=== PATIENT | female | born 1940 | race Caucasian/White ===

== ENCOUNTER 2021-02-14 12:05 | Emergency (ER) | payer MEDICARE ==
[~2021-02-14] VITALS: Ht 160 cm; Wt 56.8 kg
[2021-02-14 12:06] VITALS: TEMP 8.6
[2021-02-14 17:47] VITALS: BP 145/61; PULSE 80
== END 2021-02-14 17:50 | disposition home or self-care (01) ==
LOC: COL.ER 12:05
DX: S22.069A Unspecified fracture of T7-T8 vertebra, initial encounter for closed fracture (principal); I10 Essential (primary) hypertension; X58.XXXA Exposure to other specified factors, initial encounter
CPT/HCPCS: J2270; J2405

== ENCOUNTER 2021-02-17 16:38 | Emergency (ER) | payer MEDICARE ==
[~2021-02-17] VITALS: Ht 160 cm; Wt 54.5 kg
[2021-02-17 16:39] VITALS: TEMP 97.2
[2021-02-17 17:07] LABS: BASO % 0.5 % (0.0-2.0); EOS # 0.1 K/mm3 (0.0-0.7); EOS % 1.6 % (0-4.0); GRAN # 5.1 K/mm3 (1.4-6.5); GRAN % 67.1 % (42.2-75.2); HEMATOCRIT 41.4 % (37.0-47.0); HEMOGLOBIN 14.3 g/dl (12.5-16.0); LYMPH # 1.3 K/mm3 (1.2-3.4); LYMPH % 17.3 % (20.0-51.0); MEAN CELL VOLUME 92 fl (80.0-100.0); MEAN CORPUSCULAR HEMOGLOBIN 32 pg (27.0-31.0); MEAN CORPUSCULAR HGB CONC 35 g/dl (33.0-37.0); MEAN PLATELET VOLUME 9.9 fl (7.4-10.4); MONO % 13.4 % (1.7-9.3); PLATELET COUNT 249 K/mm3 (130-400); RED BLOOD COUNT 4.52 M/mm3 (4.10-5.30); REDCELL DISTRIBUTION WIDTH-CV 12.3 % (11.5-14.5)
[2021-02-17 17:26] LABS: ALBUMIN 3.4 gm/dL (3.4-4.8); BILIRUBIN,TOTAL 0.6 mg/dL (0.2-1.2); C-REACTIVE PROTEIN 6.13 mg/dL (0.00-0.50); CALCIUM 9.1 mg/dL (8.4-10.2); CREATININE, serum 0.79 mg/dL (0.57-1.11); POTASSIUM 3.7 mmol/L (3.5-4.5); TOTAL PROTEIN 6.7 gm/dL (6.2-8.1)
[2021-02-17] MEDS ORDERED: DULCOLAX STOOL100 MG PO (19:00)
[2021-02-17 19:13] VITALS: BP 128/91; PULSE 82
== END 2021-02-17 19:13 | disposition home or self-care (01) ==
LOC: COL.ER 16:38
PROVIDERS: Nurse Practitioner Primary Care
DX: S22.009A Unspecified fracture of unspecified thoracic vertebra, initial encounter for closed fracture (principal); K63.89 Other specified diseases of intestine; I10 Essential (primary) hypertension; Z87.891 Personal history of nicotine dependence; X58.XXXA Exposure to other specified factors, initial encounter
CPT/HCPCS: J2270; J7030; Q9967

== ENCOUNTER 2021-02-27 16:38 | Observation (INO) | payer MEDICARE ==
[~2021-02-27] VITALS: Ht 160 cm; Wt 54.3 kg
[~2021-02-27 16:38] MED LIST: DULCOLAX STOOL100 MG PO
--- NOTE | 2021-02-27 22:45 | NUR ---
To room 344 via stretcher. Transfer x3 assist using slide board. Admission assessment complete. Oriented to room and policy. VS stable. A&Ox4. Denies nausea/shortness of breath. Rating pain 3/10 on pain scale-described as intermittent sharp stabs. States as long as she lays still it is tolerable. Received morphine in the ED prior to arrival with good results. Plan of care discussed for this shift to include bedrest/NPO @ 0000/SCDs/Pain control. verbalizes understanding/denies questions/concerns. Call light in reach. Will monitor.
[2021-02-27 22:49] VITALS: BP 126/62; PULSE 56; TEMP 97.9
[2021-02-27] MEDS ORDERED: VITAMIND3 5000 PO (23:08)
[2021-02-27] MEDS ORDERED: ONE-A-DAY ESSE1 EACH PO (23:08)
[2021-02-27] MEDS ORDERED: PRILOSEC 20MG20 MG PO (23:09)
[2021-02-27] MEDS ORDERED: ZOFRAN8 MG PO (23:10)
[2021-02-27] MEDS ORDERED: ROXICODONE 55 MG/TAB PO (23:11)
[2021-02-27] MEDS ORDERED: PROVENTIL0.09 MG/A1 IH (23:12)
--- NOTE | 2021-02-27 23:16 | NUR ---
Purewick placed at this time post jose e care.
[2021-02-28] VITALS (13 sets, daily range): BP systolic 95–138; BP diastolic 36–60; PULSE 46–66; TEMP 97.2–98.2
--- NOTE | 2021-02-28 01:24 | NUR ---
Called with c/o pain to back-described as constant throbbing-rating pain 8/10 on pain scale. Morphine given per dr order.
--- NOTE | 2021-02-28 03:53 | NUR ---
Resting eyes closed. No s/s of pain or discomfort noted.
--- NOTE | 2021-02-28 05:39 | NUR ---
Rested off and on this shift. Received two doses of IV morphine for pain. Has been NPO since midnight. Purewick in place due to bedrest-patient unable to move. Refused AM dose of protonix stating she didnt want to sit up. VS remained stable. SCDs off at this time. Denies current needs. Call light in reach. Will monitor.
--- NOTE | 2021-02-28 05:46 | NUR ---
Called with c/o pain to back-rating pain 10/10 on pain scale-described as constant throbbing. Morphine given per dr order due to NPO status and unable to sit up to take PO safely.
--- NOTE | 2021-02-28 06:20 | NUR ---
Resting eyes closed. NO s/s of pain or discomfort noted. WIll continue to monitor.
[2021-02-28 06:57] LABS: BASO % 0.5 % (0.0-2.0); EOS # 0.1 K/mm3 (0.0-0.7); EOS % 2.3 % (0-4.0); GRAN # 3.9 K/mm3 (1.4-6.5); HEMATOCRIT 39.2 % (37.0-47.0); HEMOGLOBIN 13.4 g/dl (12.5-16.0); LYMPH # 1.1 K/mm3 (1.2-3.4); LYMPH % 18.4 % (20.0-51.0); MEAN CELL VOLUME 93 fl (80.0-100.0); MEAN CORPUSCULAR HEMOGLOBIN 32 pg (27.0-31.0); MEAN CORPUSCULAR HGB CONC 34 g/dl (33.0-37.0); MEAN PLATELET VOLUME 10.8 fl (7.4-10.4); MONO # 0.9 K/mm3 (0.1-0.6); MONO % 14.5 % (1.7-9.3); PLATELET COUNT 334 K/mm3 (130-400); RED BLOOD COUNT 4.22 M/mm3 (4.10-5.30); REDCELL DISTRIBUTION WIDTH-CV 12.4 % (11.5-14.5)
[2021-02-28 07:11] LABS: CALCIUM 9.3 mg/dL (8.4-10.2); CREATININE, serum 0.72 mg/dL (0.57-1.11); POTASSIUM 3.6 mmol/L (3.5-4.5)
--- NOTE | 2021-02-28 08:00 | NUR ---
SEE MERGE FOR ALL MEDICATION ADMINISTRATION TIMES, INTRA AND POST SEDATION ASSESSMENTS
--- NOTE | 2021-02-28 09:40 | NUR ---
PT TO ROOM 344 PER BED WITH REPORT FROM TRANSPORTING NURSE. PT IS A/O X3 2 BANDAIDS TO BACK. FILLED 2 MLS OF CEMENT INTO EACH PEDUNCLE. PT TOLERATED WELL. VSS. PT REPORTS PAIN RELIEF.
--- NOTE | 2021-02-28 13:34 | NUR ---
Energy Audit Advisor met with patient to discuss discharge planning. Patient lives alone in [place] and sees Dr. Wilcox for primary care. Patient obtains medications from [facility] with no difficulties. Patient normally uses a CPAP and reports she also recently had to start using a walker. Patient is normally independent with ADLS and plans to return home upon discharge. Patient does not have Advance Directives and is not interested in completing DPOA-HC at this time. Patient is and has two adult sons: Mushtaq Mcdaniel (ph#[phone]) and Isma Mcdaniel (ph#[phone]) that are her legal next of kin. PT/OT ordered for patient. Discharge Plan: Home
--- NOTE | 2021-02-28 20:45 | NUR ---
Pt. laying in bed. Pt. is A&OX3, assessment complete. INT to lt. ac patent. Pt. reports pain at a 7 on pain scale, gave pain meds per orders. Pt. denies further needs, call light within reach.
[2021-03-01 03:16] VITALS: BP 112/54; PULSE 66; TEMP 97.3
[2021-03-01 07:05] VITALS: BP 111/46; PULSE 59; TEMP 97.4
[2021-03-01] MEDS ORDERED: ANTIVERT 25MG25 MG PO (08:44)
[2021-03-01] MEDS ORDERED: ROXICODONE 55 MG/TAB PO (08:47)
[2021-03-01] MEDS ORDERED: FLEXERIL 1010 MG/TAB PO (08:47)
[2021-03-01] MEDS ORDERED: TUMS ULTRA ST1000 MG PO (08:50)
--- NOTE | 2021-03-01 09:16 | NUR ---
PT RESTING IN BED WORKED WITH THERAPY THIS AM. PAIN WELL CONTROLLED. POSSIBLE DISCHARGE LATER TODAY.
--- NOTE | 2021-03-01 09:58 | NUR ---
Gambling Broker met with patient to review discharge plan as she is ready for discharge today. SW discussed Home Health and it's benefits with patient, then provided a Medicare.gov list of HH agencies that serve [place]. Patient states she does not feel she needs HH services at this time and that she can manage her apartment just fine. SW advised patient that if after she discharges she changes her mind, she can contact her primary care office to establish services. Patient verbalized understanding. JESSY updated Hospitalist. Discharge Plan: Home today
--- NOTE | 2021-03-01 11:48 | NUR ---
DISCHARGE INSTRUCTIONS REVIEWED WITH PT. PT VERBALIZED UNDERSTANDING. PT LEFT UNIT IN WHEEL CHAIR.
== END 2021-03-01 11:10 | disposition home or self-care (01) ==
LOC: COL.ER 16:38 → SURG 19:12
PROVIDERS: Student in an Organized Health Care Education/Training Program; ADMIT Internal Medicine
DX: M48.54XA Collapsed vertebra, not elsewhere classified, thoracic region, initial encounter for fracture (principal); M81.0 Age-related osteoporosis without current pathological fracture; M54.9 Dorsalgia, unspecified; M25.552 Pain in left hip; K21.9 Gastro-esophageal reflux disease without esophagitis; R10.2 Pelvic and perineal pain; G89.29 Other chronic pain; Z90.710 Acquired absence of both cervix and uterus; Z90.89 Acquired absence of other organs; Z79.899 Other long term (current) drug therapy; Z87.891 Personal history of nicotine dependence
CPT/HCPCS: 99232-AI; G0378; J2250; J2270; J2405; J3010

== ENCOUNTER 2021-04-01 23:15 | Observation (INO) | payer MEDICARE ==
[~2021-04-01] VITALS: Ht 160 cm; Wt 49.1 kg
[~2021-04-01 23:15] MED LIST changes: +ANTIVERT 25MG25 MG PO; +FLEXERIL 1010 MG/TAB PO; +ONE-A-DAY ESSE1 EACH PO; +PRILOSEC 20MG20 MG PO; +PROVENTIL0.09 MG/A1 IH; +ROXICODONE 55 MG/TAB PO; +TUMS ULTRA ST1000 MG PO; +VITAMIND3 5000 PO; +ZOFRAN8 MG PO
[2021-04-02] VITALS (8 sets, daily range): BP systolic 102–172; BP diastolic 51–80; PULSE 64–74; TEMP 97.2–97.5
[2021-04-02 01:21] LABS: BASO % 0.4 % (0.0-2.0); EOS # 0.1 K/mm3 (0.0-0.7); EOS % 1.3 % (0.0-4.0); GRAN % 78.2 % (42.2-75.2); HEMATOCRIT 42.1 % (37.0-47.0); HEMOGLOBIN 14.5 g/dl (12.5-16.0); LYMPH # 0.8 K/mm3 (1.2-3.4); LYMPH % 10.5 % (20.0-51.0); MEAN CELL VOLUME 92 fl (80.0-100.0); MEAN CORPUSCULAR HEMOGLOBIN 32 pg (27-31); MEAN CORPUSCULAR HGB CONC 34 g/dl (33.0-37.0); MEAN PLATELET VOLUME 9.1 fl (7.4-10.4); MONO # 0.7 K/mm3 (0.1-0.6); MONO % 9.3 % (1.7-9.3); PLATELET COUNT 356 K/mm3 (130-400); RED BLOOD COUNT 4.59 M/mm3 (4.10-5.30)
[2021-04-02 01:24] LABS: INR 1.1 (0.8-3.0); PROTHROMBIN TIME 12.5 SECONDS (9.7-12.8)
[2021-04-02 01:26] LABS: PARTIAL THROMBOPLASTIN TIME 32.3 SECONDS (26.0-37.0)
[2021-04-02 01:34] LABS: CALCIUM 9.6 mg/dL (8.4-10.2); POTASSIUM 3.7 mmol/L (3.5-4.5)
[2021-04-02 02:18] LABS: CREATININE, serum 0.68 mg/dL (0.57-1.11)
--- NOTE | 2021-04-02 08:54 | NUR ---
Patient admitted from Er. Patient in great pain with any movement & even at rest. Facial grimacing & moans & groans noted. Started with Flexril for pain, she has not yet had. Patient has had nausea with the pain, no appetite. Kpad proved as well as warm back for comfort. Positioned patietn with pillows to try & assist with the pain. Admission paperwork completed, will try to let patient rest, she reports not being able to sleep. WIll monitor closely
--- NOTE | 2021-04-02 09:34 | NUR ---
Initial visit; Patient nauseous so Neurological Surgeon just let her know she will be in Neurological Surgeon's prayers for which she expressed thankfulness.
--- NOTE | 2021-04-02 11:23 | NUR ---
social service worker met with patient to discuss discharge plan. Patient reports that she lives at home with her cat in [place]. Prior to this fx, patient reports that she is fully independent with her activities of daily living and does not utilize any DME to assist with ambulation, however has been using a walker to aid in the healing of her kyphoplasty. PCP is Dr. Wilcox and she utilizes [facility] for medications with no cost difficulty. Patient reports that she does not have a DPOA-HC established in is not interested in completing one at this time. Patient states that she is not , but does have two son's, both live in [place]. Her oldest child is Mushtaq Rangel ([phone]) and her other son is Isma Rangel ([phone]). Due to the patient's cell phone being on low charge, she does give me permission to call Mushtaq and notify him that she is here. Discharge plan: pending pt/ot rec's
--- NOTE | 2021-04-02 15:27 | NUR ---
SEE MERGE FOR ALL MEDICATION ADMINISTRATION TIMES, INTRA AND POST SEDATION ASSESSMENTS
[2021-04-02 18:45] LABS: COLLECTION METHOD CLEAN CATCH
[2021-04-02 18:55] LABS: MUCOUS Present (NOT PRESENT); PH 5 (5-8); SQUAMOUS EPITHELIAL None Seen /hpf (0-10); URINE APPEARANCE Clear (CLEAR/HAZY); URINE BACTERIA None Seen /hpf (NONE SEEN); URINE BILIRUBIN Negative (NEGATIVE); URINE BLOOD Negative (NEGATIVE); URINE COLOR Yellow (YELLOW); URINE GLUCOSE Negative (NEGATIVE); URINE KETONE 2+ (NEGATIVE); URINE LEUKOCYTE ESTERASE Negative (NEGATIVE); URINE NITRATE Negative (NEGATIVE); URINE PROTEIN(semi-quant) Negative (NEGATIVE); URINE RBC 0-2 /hpf (0-2); URINE UROBILINOGEN Negative (NEGATIVE)
--- NOTE | 2021-04-02 19:46 | NUR ---
Patient resting in bed. She reports her pain is slightly better than before vertebroplasty, but she still appears to be hurting quite significantly. I did speak to Christine Farr about this. Patient medicated with Morphine per orders & Zofran as scheduled. Patient very sensitive to narcotics. Patient attempted to void, but was unsuccessful. She has not voided on my shift, Christine made aware & orders to Straight cath x1. Ua sent to lab & 350ml of urine obtained. Patient has no appetite. Ivf started per orders. Bedside shift report to Steffany KIDD
--- NOTE | 2021-04-02 20:32 | NUR ---
RECEIVED CHANGE OF SHIFT REPORT FROM DAY SHIFT RN.
[2021-04-03 00:58] VITALS: BP 122/58; PULSE 83; TEMP 97.8
[2021-04-03 04:05] VITALS: BP 107/48; PULSE 93; TEMP 97.5
--- NOTE | 2021-04-03 07:21 | NUR ---
CHANGE OF SHIFT REPORT GIVEN TO DAY SHIFT RNGIA.
[2021-04-03 07:55] VITALS: BP 117/45; PULSE 72; TEMP 97.5
[2021-04-03 08:03] LABS: BASO % 0.3 % (0.0-2.0); EOS # 0.1 K/mm3 (0.0-0.7); EOS % 1.3 % (0.0-4.0); GRAN # 5.2 K/mm3 (1.4-6.5); GRAN % 83.5 % (42.2-75.2); HEMATOCRIT 40.1 % (37.0-47.0); HEMOGLOBIN 12.8 g/dl (12.5-16.0); LYMPH # 0.4 K/mm3 (1.2-3.4); LYMPH % 6.1 % (20.0-51.0); MEAN CELL VOLUME 96 fl (80.0-100.0); MEAN CORPUSCULAR HEMOGLOBIN 31 pg (27-31); MEAN CORPUSCULAR HGB CONC 32 g/dl (33.0-37.0); MEAN PLATELET VOLUME 9.2 fl (7.4-10.4); MONO # 0.5 K/mm3 (0.1-0.6); MONO % 8.5 % (1.7-9.3); PLATELET COUNT 326 K/mm3 (130-400); RED BLOOD COUNT 4.19 M/mm3 (4.10-5.30)
[2021-04-03 08:20] LABS: CALCIUM 8.8 mg/dL (8.4-10.2); CREATININE, serum 0.66 mg/dL (0.57-1.11); POTASSIUM 4.2 mmol/L (3.5-4.5)
--- NOTE | 2021-04-03 09:17 | NUR ---
Pt assessment complete. Pt laying in bed upon entry, she is A/O x4. Her breathing is even and unlabored on RA. Pt denies SOB. Pain flared up at this time d/t getting out of bed to urinate, -09/30. Scheduled Toradol administered. Pt reports nausea is near nonexistent. Denies any N/T to BLE. Refusing breakfast at this time, wants to "nap". No further needs at this time. Call light within reach.
[2021-04-03 11:51] VITALS: BP 129/55; PULSE 89; TEMP 97.5
--- NOTE | 2021-04-03 14:02 | NUR ---
SW attended rounds with physician staff. Notified the patient for the need of more rehab prior to going home. Patient is upset that she cannot go back home yet but is understanding of the reason. Referral made for IPR screen.
[2021-04-03 16:00] VITALS: BP 111/47; PULSE 83; TEMP 97.5
--- NOTE | 2021-04-03 18:11 | NUR ---
Pt up to the chair for a few hours today, started having a lot of pain when sitting up and with any movement. Back in bed this afternoon. Little to no appetite, she was able to tolerate an Ensure. No needs at this time. Call light within reach.
--- NOTE | 2021-04-03 19:00 | NUR ---
RECEIVED CHANGE OF SHIFT REPORT FROM DAY SHIFT RN.
[2021-04-03 19:27] VITALS: BP 106/80; PULSE 85; TEMP 97.6
[2021-04-04] VITALS (7 sets, daily range): BP systolic 95–125; BP diastolic 33–67; PULSE 70–80; TEMP 97.4–98.5
--- NOTE | 2021-04-04 01:15 | NUR ---
PATIENT REPORTS MORE BACK DISCOMFRT SINCE STARTED ON PT AND WALKING MORE. OBSERVED WHEN PATIENT IN POSITION OF COMFORT WHEN LAYING IN BED, C/O PAIN WITH MOVEMENT BUT PAIN PARTIALLY SUBSIDES WHEN FEELS SHE IS IN A COMFORTABLE POSITION IN BED.
--- NOTE | 2021-04-04 07:28 | NUR ---
CHANGE OF SHIFT REPORT GIVEN TO DAY SHIFT RYAN KIDD.
--- NOTE | 2021-04-04 07:42 | NUR ---
Patient is sleeping in bed. Call light and bedside table are within reach. Will continue to monitor patient throughout shift.
--- NOTE | 2021-04-04 09:59 | NUR ---
Initial visit; Patient thanked Infrastructure Technician for looking in on her and offering Spiritual Care when she is eventually finished with her phone call. Patient thanked Infrastructure Technician.
--- NOTE | 2021-04-04 10:17 | NUR ---
Patient stated pain is 8/10 in mid to lower back. This nurse administered Ema 5 mg and put a lidocaine patch where patient stated she was having the most pain. Also placed pillow under her knees to help alleviate some of the pain. Call light and bedside table are within reach.
--- NOTE | 2021-04-04 16:40 | NUR ---
Director Of Category Management spoke with Ana, IPR Director who advised patient is not appropriate for IPR at this time. SW spoke with patient about additional SNF referrals. Patient would prefer to return home but verbalized understanding that she needs rehab. Patient agreeable to SNF referrals. Patient is observation, however her insurance provider [employer] has waived the three midnight rule at this time. JESSY faxed referrals to [facility], [facility], [facility], [facility], and [facility]. [facility] declined referral as they cannot accept patients who are unvaccinated. Lam from [facility] reviewed referral and had concerns about patient's pain management. JESSY provided this update to Hospitalist. Discharge Plan: Rehab pending referrals to [facility], [facility], [facility], and [facility].
--- NOTE | 2021-04-04 20:00 | NUR ---
PT RESTING IN BED. REPOSITIONED SELF FOR COMFORT. FAMILY BROUGHT IN CPAP MACHINE. NOTIFIED RT. PT STARTING TO GET BACK PAIN RELIEF FROM PAIN MEDS GIVEN EARLIER. LIDODERM PATCH TO BACK REMOVED
[2021-04-05 03:49] VITALS: BP 112/42; PULSE 82; TEMP 97.5
--- NOTE | 2021-04-05 07:04 | NUR ---
Report given by BERNABE Haddad. Patient is sleeping with CPAP on. Call light and bedside table are within reach.
[2021-04-05 07:55] VITALS: BP 126/56; PULSE 87; TEMP 97.9
--- NOTE | 2021-04-05 11:00 | NUR ---
Patient continues to c/o pain in mid to lower back and on right flank. Patient tends to have more pain from getting her pill button grader and until she requests a pain pill at or around 4031-9966. Patient's pain medication has been adjusted to help alleviate some of the pain (time in between medication is 4 instead of 6). Once patient gets the Lidocaine patch and pain pill works she does not c/o pain. Patient stated her pain is aggravated with movement and as long as she is careful about not moving too much and too fast, the pain is minimized. This nurse explained to patient she will have to call for pain medication but would try to keep her on a schedule as much as possible to aid with the pain. Call light and bedside table are within reach.
[2021-04-05 12:21] VITALS: BP 108/50; PULSE 83; TEMP 98.2
--- NOTE | 2021-04-05 13:17 | NUR ---
JESSY faxed clinical updates to Lam at [facility]. Lam voiced concerns surrounding the patient's pain control. Collaborated with the hospitalist team and are in agreement to switching the patient from on demand pain medication to ever q4 hrs. Lam will have his team review updates and get back with me. Lam would like a confirmation that the patient is ok with going even though they have an active covid case. I spoke with the patient and her son Mushtaq's aboout the above. Patient is unvaccinated and expresses concerns about being exposed but is open to still going. Spoke with Mushtaq who reiterates his mothers feelings on the situation, however states that "if she is ok with going, i am ok with her going". Lam's name and phone number provided to Mushtaq nicky encouraged him to reach out with further questions. Discharge plan: awaiting final approval from [facility]
--- NOTE | 2021-04-05 14:35 | NUR ---
Clinical updates faxed to Ani at [facility]. Let Ani know that the patient's pain medications will be discharged with the instructions of every 4 hrs.
--- NOTE | 2021-04-05 16:52 | NUR ---
Ani with [facility] states that they can accept this patient tomorrow pending the patient is ok with coming there and them having active covid cases. Ani states that she is going to reach out to the patient and the patient's son Mushtaq first thing in the morning. Lam with [facility] states he has not heard back from his team (after current therapy notes had been sent) on if they would be able to accept this patient. Notified Lam that i do have another facility willing to accept if they cannot.
[2021-04-05 19:11] VITALS: BP 128/57; PULSE 75; TEMP 97.6
--- NOTE | 2021-04-05 19:30 | NUR ---
JUST RETURNED FROM [facility] WITH ASSIST. PAIN IS 8/10 SEE MAY. CALL LIGHT IN REACH. BED ALARM SET.
[2021-04-05 23:22] VITALS: BP 115/40; PULSE 79; TEMP 97.6
[2021-04-06 03:20] VITALS: BP 111/33; PULSE 71; TEMP 97.8
[2021-04-06 06:22] LABS: BASO % 0.8 % (0.0-2.0); EOS # 0.1 K/mm3 (0.0-0.7); EOS % 3.4 % (0.0-4.0); GRAN # 2.2 K/mm3 (1.4-6.5); GRAN % 56.8 % (42.2-75.2); HEMOGLOBIN 11.9 g/dl (12.5-16.0); LYMPH # 0.9 K/mm3 (1.2-3.4); LYMPH % 23.4 % (20.0-51.0); MEAN CELL VOLUME 92 fl (80.0-100.0); MEAN CORPUSCULAR HEMOGLOBIN 31 pg (27-31); MEAN CORPUSCULAR HGB CONC 34 g/dl (33.0-37.0); MEAN PLATELET VOLUME 9.8 fl (7.4-10.4); MONO # 0.6 K/mm3 (0.1-0.6); MONO % 15.6 % (1.7-9.3); PLATELET COUNT 306 K/mm3 (130-400); RED BLOOD COUNT 3.85 M/mm3 (4.10-5.30); REDCELL DISTRIBUTION WIDTH-CV 12.9 % (11.5-14.5)
[2021-04-06 06:33] LABS: HEMATOCRIT 35.5 % (37.0-47.0)
[2021-04-06 06:35] LABS: CALCIUM 9.1 mg/dL (8.4-10.2); CREATININE, serum 0.72 mg/dL (0.57-1.11); POTASSIUM 4.3 mmol/L (3.5-4.5)
[2021-04-06] MEDS ORDERED: SENNA-LAX8.6 MG PO (07:15)
[2021-04-06] MEDS ORDERED: FLEXERIL 1010 MG/TAB PO (07:15)
[2021-04-06] MEDS ORDERED: BLUE-EMU LIDOC1 EACH TP (07:15)
[2021-04-06] MEDS ORDERED: TYLENOL 500MG500 MG PO (07:15)
[2021-04-06] MEDS ORDERED: VOLTAREN GEL 1%1 TU TP (07:15)
[2021-04-06 07:54] VITALS: BP 119/67; PULSE 110; TEMP 97.9
[2021-04-06] MEDS ORDERED: ROXICODONE 55 MG/TAB PO (09:47)
[2021-04-06] MEDS ORDERED: ULTRAM 50MG TAB50 MG PO (09:47)
[2021-04-06] MEDS ORDERED: MIRALAX510G PO (09:49)
--- NOTE | 2021-04-06 10:55 | NUR ---
PT RESTING IN BED. [facility] TODAY PENDING NEGATIVE COVID RESULTS.
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
[2021-04-06 11:37] VITALS: BP 144/47; PULSE 80; TEMP 98
--- NOTE | 2021-04-06 13:27 | NUR ---
[facility] RE[facility]
== END 2021-04-06 13:29 ==
LOC: COL.ER 23:15 → SURG 04-02 00:50
PROVIDERS: Emergency Medicine; Physician Assistant; Student in an Organized Health Care Education/Training Program; ADMIT Internal Medicine
DX: S32.031A Stable burst fracture of third lumbar vertebra, initial encounter for closed fracture (principal); M81.0 Age-related osteoporosis without current pathological fracture; I10 Essential (primary) hypertension; K63.89 Other specified diseases of intestine; K21.9 Gastro-esophageal reflux disease without esophagitis; Z66 Do not resuscitate; Y99.8 Other external cause status; Y93.B9 Activity, other involving muscle strengthening exercises; Y92.89 Other specified places as the place of occurrence of the external cause; Z79.899 Other long term (current) drug therapy; Z87.891 Personal history of nicotine dependence; Z20.822 Contact with and (suspected) exposure to COVID-19
CPT/HCPCS: C1713; C9113; G0378; J0780; J1170; J1644; J1885; J2250; J2270; J2405; J2765; J3010; J3475; J7030; J7120

== ENCOUNTER 2021-04-10 09:49 | Emergency (ER) | payer MEDICARE ==
[~2021-04-10] VITALS: Ht 160 cm; Wt 51.8 kg
[~2021-04-10 09:49] MED LIST changes: +BLUE-EMU LIDOC1 EACH TP; +MIRALAX510G PO; +SENNA-LAX8.6 MG PO; +TYLENOL 500MG500 MG PO; +ULTRAM 50MG TAB50 MG PO; +VOLTAREN GEL 1%1 TU TP
[2021-04-10 09:59] VITALS: TEMP 97.9
[2021-04-10] MEDS ORDERED: ROXICODONE 55 MG/TAB PO (16:23)
[2021-04-10 17:21] VITALS: BP 135/72; PULSE 90
== END 2021-04-10 18:10 | disposition home or self-care (01) ==
LOC: COL.ER 09:49
DX: S32.039A Unspecified fracture of third lumbar vertebra, initial encounter for closed fracture (principal); Z98.890 Other specified postprocedural states; Z87.891 Personal history of nicotine dependence; X58.XXXA Exposure to other specified factors, initial encounter
CPT/HCPCS: A4314; J1170

== ENCOUNTER → 2021-04-16 | Outpatient (CLI) | payer MEDICARE ==
[~2021-04-16] MED LIST changes: +ANTACID500 M1 PO; +COLACE 100100 MG/CAP PO; +FENTANYL 12MCG TD; +FORTICAL200 IU/ACT NS; +GOOD SENSE TRIP1 OI1 TP; +IMODIUM 2MG CAPS2 MG PO; +LIDODERM 5% PATC1 EA TP; +MIRALAX PA17 GM/Dose PO; +SENOKOT8.6 MG PO; +TYLENOL 325MG325 MG PO; +TYLENOL SU650 MG/SUP RC; +ZOFRAN 4MG T4 MG/TAB PO
== END ==
LOC: MHCPAIN 14:05
DX: M54.50 Low back pain, unspecified (principal); M48.56XA Collapsed vertebra, not elsewhere classified, lumbar region, initial encounter for fracture; M48.54XA Collapsed vertebra, not elsewhere classified, thoracic region, initial encounter for fracture

== ENCOUNTER 2021-04-17 10:28 | Outpatient (CLI) | payer MEDICARE ==
[2021-04-17] VITALS (9 sets, daily range): BP systolic 114–151; BP diastolic 50–63; PULSE 60–100; TEMP 98.1
[~2021-04-17] VITALS: Ht 160 cm; Wt 48.6 kg
[~2021-04-17 10:28] MED LIST changes: -ANTACID500 M1 PO; -COLACE 100100 MG/CAP PO; -FENTANYL 12MCG TD; -FORTICAL200 IU/ACT NS; -GOOD SENSE TRIP1 OI1 TP; -IMODIUM 2MG CAPS2 MG PO; -LIDODERM 5% PATC1 EA TP; -MIRALAX PA17 GM/Dose PO; -SENOKOT8.6 MG PO; -TYLENOL 325MG325 MG PO; -TYLENOL SU650 MG/SUP RC; -ZOFRAN 4MG T4 MG/TAB PO
[2021-04-17] MEDS ORDERED: TYLENOL SU650 MG/SUP RC (10:51)
[2021-04-17] MEDS ORDERED: VOLTAREN GEL 1%1 TU TP (10:53)
[2021-04-17] MEDS ORDERED: GOOD SENSE TRIP1 OI1 TP (10:54)
[2021-04-17] MEDS ORDERED: TYLENOL 325MG325 MG PO (10:54)
[2021-04-17] MEDS ORDERED: LIDODERM 5% PATC1 EA TP (10:56)
[2021-04-17] MEDS ORDERED: ANTIVERT 25MG25 MG PO (10:57)
[2021-04-17] MEDS ORDERED: ROXICODONE 55 MG/TAB PO (10:58)
[2021-04-17] MEDS ORDERED: ZOFRAN 4MG T4 MG/TAB PO (10:58)
[2021-04-17] MEDS ORDERED: PROVENTIL0.09 MG/A1 IH (10:59)
[2021-04-17] MEDS ORDERED: IMODIUM 2MG CAPS2 MG PO (11:00)
[2021-04-17] MEDS ORDERED: SENNA-LAX8.6 MG PO (11:00)
[2021-04-17] MEDS ORDERED: MIRALAX PA17 GM/Dose PO (11:01)
[2021-04-17] MEDS ORDERED: COLACE 100100 MG/CAP PO (11:02)
[2021-04-17] MEDS ORDERED: FENTANYL 12MCG TD (11:02)
--- NOTE | 2021-04-17 13:44 | NUR ---
SEE MERGE DOCUMENTATION FOR MEDICATION ADMINISTRATION AND INTRA/POST PROCEDURE SEDATION ASSESSMENTS.
--- NOTE | 2021-04-17 14:15 | NUR ---
Report from Zofia KIDD. Transferred from Radiology by bed. Two bandaids to back CD&I. VSS. Pt denies pain at this time
--- NOTE | 2021-04-17 17:00 | NUR ---
INT x2 discontinued intact. Assisted pt with dressing and transferring to . Discharge paperwork given to [email or web address] [facility] Kyruus. Transferred to [facility] by [facility]
== END 2021-04-17 17:15 ==
LOC: COL.CAR 10:28
DX: M80.08XA Age-related osteoporosis with current pathological fracture, vertebra(e), initial encounter for fracture (principal); G47.33 Obstructive sleep apnea (adult) (pediatric); K21.9 Gastro-esophageal reflux disease without esophagitis; Z79.899 Other long term (current) drug therapy; Z90.710 Acquired absence of both cervix and uterus; Z90.49 Acquired absence of other specified parts of digestive tract; Z90.89 Acquired absence of other organs
CPT/HCPCS: C1713; J1200; J1644; J2250; J3010

== ENCOUNTER 2021-04-24 20:04 | Observation (INO) | payer MEDICARE ==
[~2021-04-24] VITALS: Ht 160 cm; Wt 50.0 kg
[~2021-04-24 20:04] MED LIST changes: +COLACE 100100 MG/CAP PO; +FENTANYL 12MCG TD; +GOOD SENSE TRIP1 OI1 TP; +IMODIUM 2MG CAPS2 MG PO; +LIDODERM 5% PATC1 EA TP; +MIRALAX PA17 GM/Dose PO; +TYLENOL 325MG325 MG PO; +TYLENOL SU650 MG/SUP RC; +ZOFRAN 4MG T4 MG/TAB PO
[2021-04-24 20:48] LABS: BASO % 0.3 % (0.0-2.0); EOS # 0.1 K/mm3 (0.0-0.7); EOS % 0.7 % (0.0-4.0); GRAN # 6.8 K/mm3 (1.4-6.5); GRAN % 77.5 % (42.2-75.2); HEMOGLOBIN 10.8 g/dl (12.5-16.0); LYMPH # 1.1 K/mm3 (1.2-3.4); LYMPH % 12.1 % (20.0-51.0); MEAN CELL VOLUME 92 fl (80.0-100.0); MEAN CORPUSCULAR HEMOGLOBIN 31 pg (27-31); MEAN CORPUSCULAR HGB CONC 34 g/dl (33.0-37.0); MEAN PLATELET VOLUME 9.3 fl (7.4-10.4); MONO # 0.8 K/mm3 (0.1-0.6); MONO % 8.9 % (1.7-9.3); PLATELET COUNT 466 K/mm3 (130-400); RED BLOOD COUNT 3.49 M/mm3 (4.10-5.30); REDCELL DISTRIBUTION WIDTH-CV 14.6 % (11.5-14.5)
[2021-04-24 21:06] LABS: BILIRUBIN,TOTAL 0.2 mg/dL (0.2-1.2); CALCIUM 9.1 mg/dL (8.4-10.2); CREATININE, serum 0.71 mg/dL (0.57-1.11); POTASSIUM 3.6 mmol/L (3.5-4.5)
[2021-04-24] MEDS ORDERED: FORTICAL200 IU/ACT NS (22:45)
--- NOTE | 2021-04-24 23:18 | NUR ---
Pt. arrived to the floor via stretcher. Pt transffered to the bed with 3 assist and slide board. Pt. is A&OX3 assessment complete. INT to rt. forearm patent. Pt. reports pain at an 8 on pain scale. Pt. denies further needs, call light within reach.
[2021-04-25] VITALS (7 sets, daily range): BP systolic 118–142; BP diastolic 51–74; PULSE 64–87; TEMP 97.2–97.9
[2021-04-25] MEDS ORDERED: ROXICODONE 55 MG/TAB PO (03:14)
[2021-04-25] MEDS ORDERED: FLEXERIL 1010 MG/TAB PO (03:17)
[2021-04-25] MEDS ORDERED: SENOKOT8.6 MG PO (03:18)
--- NOTE | 2021-04-25 07:40 | NUR ---
Pt assessment complete. Pt moans while in bed, attempts to sit up in bed but with any slight movement she yells out in pain. Is able to turn over onto side with increased pain, able to place a pain patch as well as K pad to back. Pt denies N/T. Able to move both legs independently. Does not want to eat breakfast this am. No further needs at this time. Call light within reach.
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
--- NOTE | 2021-04-25 11:31 | NUR ---
Pt sleeping at this time.
--- NOTE | 2021-04-25 11:38 | NUR ---
First visit from the kitchen worker. prayed with patient. No other needs right now.
--- NOTE | 2021-04-25 14:19 | NUR ---
Message left for [facility] as a second choice preference
--- NOTE | 2021-04-25 17:23 | NUR ---
Pt sleeping at this time.
--- NOTE | 2021-04-25 17:24 | NUR ---
Pt sleeping at this time. Very limited in participation with therapy and staff due to pain. Pt refused breakfast and lunch but is agreeable to dinner. Call light within reach.
--- NOTE | 2021-04-25 18:37 | NUR ---
Attempted to have patient lay on her side, unable to tolerate this. Using the bedpan to urinate as she will not get out of bed. PRN pain medications and K pad in given. Pt able to move legs independently. Call light within reach.
--- NOTE | 2021-04-25 19:30 | NUR ---
Pt. laying in bed. Pt. is A&OX3, assessment complete. Pt. is whencing and moaning in pain at this time. Pt. reports pain at a 10 on pain scale. Giving pt. pain meds per orders. INT to rt. forearm patent. Pt. repositioned for comfort. Pt. denies further needs.
[2021-04-26 00:04] VITALS: BP 145/61; PULSE 70; TEMP 98
[2021-04-26 04:01] VITALS: BP 130/71; PULSE 69; TEMP 97.6
--- NOTE | 2021-04-26 05:40 | NUR ---
Pt. set bed alarm off. VBA PROGRAMMER went right into the room. Pt. was on knees at the bedside. Pt. was assisted up with 2 assist with gait belt and walker. No signs of injury noted, vitals wnl. Pt. has been confused and tells this nurse he did not hit his head. LARA Muhammad notified. New orders received. cloth bleaching supervisor notifed. Bed alarm was on, pt. in yellow gown and socks, signage in place. Pt. taken to CT for scans.
[2021-04-26 08:22] VITALS: BP 132/55; PULSE 77; TEMP 98.2
--- NOTE | 2021-04-26 08:50 | NUR ---
Pt assessment complete. Pt laying in bed upon entry, she is A/O x4. Her breathing is even and unlabored on RA. Pt does have pain to back with any movement. No N/T down legs, pt able to roll on her side independently as well as move bilateral legs in bed. Encouraged to slowly try and sit completely up in bed. K pad in place to lower back. POC discussed with patient who verbalizes understanding. No needs at this time. Call light within reach.
[2021-04-26] MEDS ORDERED: ROXICODONE 55 MG/TAB PO (10:39)
[2021-04-26] MEDS ORDERED: FLEXERIL 1010 MG/TAB PO (10:39)
[2021-04-26] MEDS ORDERED: TYLENOL 500MG500 MG PO (10:41)
[2021-04-26] MEDS ORDERED: ANTACID500 M1 PO (10:44)
[2021-04-26] MEDS ORDERED: MIRALAX PA17 GM/Dose PO (10:44)
[2021-04-26] MEDS ORDERED: SENOKOT8.6 MG PO (10:44)
[2021-04-26] MEDS ORDERED: FORTICAL200 IU/ACT NS (10:45)
[2021-04-26] MEDS ORDERED: ANTIVERT 25MG25 MG PO (10:45)
[2021-04-26] MEDS ORDERED: BLUE-EMU LIDOC1 EACH TP (10:45)
[2021-04-26] MEDS ORDERED: VITAMIND3 5000 PO (10:46)
[2021-04-26] MEDS ORDERED: ONE-A-DAY ESSE1 EACH PO (10:46)
--- NOTE | 2021-04-26 10:59 | NUR ---
The PA notified JESSY that they are ready to discharge the patient today. JESSY notified and faxed updates to Ani at [facility]. Ani at [facility] reports that they are able to accept the patient today. JESSY updated the PA and the patient. The patient is in agreement with going to [facility]. JESSY offered to contact her children or brother. The patient declined and states that she will update her family. The patient is to discharge today, 04/26, to [facility] for a skilled stay. Transportation was scheduled at 1145, via [facility]. JESSY informed the patient and her RN of the time. No additional needs at this time.
--- NOTE | 2021-04-26 11:41 | NUR ---
IV to RFA dc'd catheter tip intact. Pt wheeled out of facility by [facility] employee at this time.
--- NOTE | 2021-04-26 12:01 | NUR ---
Report given to [facility] nurse at this time.
== END 2021-04-26 12:02 ==
LOC: COL.ER 20:04 → SURG 22:30
PROVIDERS: Family Medicine; ADMIT Internal Medicine
DX: M54.50 Low back pain, unspecified (principal); M81.0 Age-related osteoporosis without current pathological fracture; K21.9 Gastro-esophageal reflux disease without esophagitis; K63.89 Other specified diseases of intestine; Z79.891 Long term (current) use of opiate analgesic; Z20.822 Contact with and (suspected) exposure to COVID-19; Z87.81 Personal history of (healed) traumatic fracture; Z79.899 Other long term (current) drug therapy; Z98.890 Other specified postprocedural states
CPT/HCPCS: 99223-AI; 99232-AI; G0378; J1170; J2405

== ENCOUNTER 2021-04-27 23:42 | Emergency (ER) | payer MEDICARE ==
[~2021-04-27] VITALS: Ht 160 cm; Wt 49.1 kg
[~2021-04-27 23:42] MED LIST changes: +ANTACID500 M1 PO; +FORTICAL200 IU/ACT NS; +SENOKOT8.6 MG PO
[2021-04-27 23:54] VITALS: TEMP 98.3
[2021-04-28 00:15] LABS: BASO % 0.4 % (0.0-2.0); EOS % 0.4 % (0.0-4.0); GRAN # 7.4 K/mm3 (1.4-6.5); GRAN % 83.8 % (42.2-75.2); HEMOGLOBIN 11.7 g/dl (12.5-16.0); LYMPH # 0.8 K/mm3 (1.2-3.4); LYMPH % 8.5 % (20.0-51.0); MEAN CELL VOLUME 93 fl (80.0-100.0); MEAN CORPUSCULAR HEMOGLOBIN 31 pg (27-31); MEAN CORPUSCULAR HGB CONC 33 g/dl (33.0-37.0); MEAN PLATELET VOLUME 9.6 fl (7.4-10.4); MONO # 0.6 K/mm3 (0.1-0.6); MONO % 6.7 % (1.7-9.3); PLATELET COUNT 448 K/mm3 (130-400); RED BLOOD COUNT 3.78 M/mm3 (4.10-5.30); REDCELL DISTRIBUTION WIDTH-CV 14.6 % (11.5-14.5)
[2021-04-28 00:34] LABS: BILIRUBIN,TOTAL 0.4 mg/dL (0.2-1.2); CALCIUM 9.4 mg/dL (8.4-10.2); CREATININE, serum 0.7 mg/dL (0.57-1.11); POTASSIUM 4.6 mmol/L (3.5-4.5); TOTAL PROTEIN 6.3 gm/dL (6.2-8.1)
[2021-04-28 01:37] LABS: COLLECTION METHOD CLEAN CATCH
[2021-04-28 01:43] LABS: MUCOUS Present (NOT PRESENT); PH 5 (5-8); SQUAMOUS EPITHELIAL 0-2 /hpf (0-10); URINE APPEARANCE Clear (CLEAR/HAZY); URINE BACTERIA None Seen /hpf (NONE SEEN); URINE BILIRUBIN Negative (NEGATIVE); URINE BLOOD Negative (NEGATIVE); URINE COLOR Yellow (YELLOW); URINE GLUCOSE Negative (NEGATIVE); URINE KETONE 1+ (NEGATIVE); URINE LEUKOCYTE ESTERASE Negative (NEGATIVE); URINE NITRATE Negative (NEGATIVE); URINE PROTEIN(semi-quant) Negative (NEGATIVE); URINE RBC 0-2 /hpf (0-2); URINE UROBILINOGEN Negative (NEGATIVE)
[2021-04-28] MEDS ORDERED: MIRALAX238G PO (03:23)
[2021-04-28] MEDS ORDERED: ZOFRAN ODT4 MG PO (03:23)
[2021-04-28 03:33] VITALS: BP 127/65; PULSE 75
== END 2021-04-28 04:45 | disposition home or self-care (01) ==
LOC: COL.ER 23:42
PROVIDERS: Personal Emergency Response Attendant
DX: M54.50 Low back pain, unspecified (principal); G89.29 Other chronic pain; R11.2 Nausea with vomiting, unspecified; Z98.890 Other specified postprocedural states; Z91.040 Latex allergy status; Z88.5 Allergy status to narcotic agent; Z79.891 Long term (current) use of opiate analgesic
CPT/HCPCS: A4314; J1885; J2270; J2405

== ENCOUNTER → 2021-05-02 | Outpatient (CLI) | payer MEDICARE ==
[~2021-05-02] MED LIST changes: +MIRALAX238G PO; +ZOFRAN ODT4 MG PO
== END ==
LOC: COL.RAD 12:53
DX: M48.56XA Collapsed vertebra, not elsewhere classified, lumbar region, initial encounter for fracture (principal)

== ENCOUNTER → 2021-05-21 | Outpatient (CLI) | payer MEDICARE ==
[~2021-05-21] MED LIST changes: +ATIVAN 0.50.5 MG/TAB PO; +CYMBALTA 60MG60 MG PO; +DULCOLAX S10 MG/SUPP RC; +MIACALCIN NASA3.7 ML NS; +MULTI VITAMINS1 TAB PO; +OSCAL 500 TAB500 MG PO; +PHENERGAN25 MG RC; +PROTONIX 40MG T40 MG PO; +TUMS500 MG PO
== END ==
LOC: COL.RAD 10:36
DX: M54.6 Pain in thoracic spine (principal); Z87.81 Personal history of (healed) traumatic fracture

== ENCOUNTER → 2021-05-30 | Outpatient (CLI) | payer MEDICARE ==
[~2021-05-30] MED LIST changes: +MOBIC 7.5MG7.5 MG PO
== END ==
LOC: COL.RAD 07:30
DX: S22.079A Unspecified fracture of T9-T10 vertebra, initial encounter for closed fracture (principal)

== ENCOUNTER 2021-06-04 08:43 | Outpatient (CLI) | payer MEDICARE ==
[~2021-06-04] VITALS: Ht 160 cm; Wt 48.7 kg
[2021-06-04] VITALS (10 sets, daily range): BP systolic 120–161; BP diastolic 65–83; PULSE 67–102; TEMP 98.2
== END 2021-06-04 15:58 | disposition home or self-care (01) ==
LOC: COL.CAR 08:43
DX: M48.54XA Collapsed vertebra, not elsewhere classified, thoracic region, initial encounter for fracture (principal); M54.9 Dorsalgia, unspecified; Z98.890 Other specified postprocedural states; Z87.891 Personal history of nicotine dependence
CPT/HCPCS: J1200; J1644; J2250; J3010